=== PATIENT | male | born 1950 ===

== ENCOUNTER → 2017-10-07 | Emergency (ER) | payer OTHER ==
[~2017-10-07] VITALS: Ht 182.9 cm; Wt 85.3 kg
[~2017-10-07] MED LIST: LANTUS SOL100 UNIT/1
== END | disposition home or self-care (01) ==
LOC: ER 13:08
DX: S80.02XA Contusion of left knee, initial encounter (principal); W18.09XA Striking against other object with subsequent fall, initial encounter; Y93.89 Activity, other specified; Y92.018 Other place in single-family (private) house as the place of occurrence of the external cause; Y99.8 Other external cause status

== ENCOUNTER 2019-02-05 18:04 | Emergency (ER) | payer OTHER ==
[~2019-02-05] VITALS: Ht 182.9 cm; Wt 90.3 kg
[~2019-02-05 18:04] MED LIST changes: +DICLOFENAC SOD100 G1 TOP; +NABUMETONE750 MG PO
[2019-02-05] MEDS ORDERED: GABAPENTIN100 MG (18:17)
[2019-02-05] MEDS ORDERED: XANAX XR0.5 MG (18:17)
[2019-02-05] MEDS ORDERED: OMEGA-31000 MG (18:19)
[2019-02-05] MEDS ORDERED: ACTOPLUS MET 11 EAC1 (18:19)
[2019-02-05] MEDS ORDERED: LISINOPRIL10 MG (18:19)
== END 2019-02-05 21:37 | disposition home or self-care (01) ==
LOC: ER 18:04
DX: S63.111A Subluxation of metacarpophalangeal joint of right thumb, initial encounter (principal); S60.211A Contusion of right wrist, initial encounter; W18.09XA Striking against other object with subsequent fall, initial encounter; Y93.89 Activity, other specified; Y92.488 Other paved roadways as the place of occurrence of the external cause; Y99.8 Other external cause status

== ENCOUNTER 2019-08-15 08:32 | Emergency (ER) | payer OTHER ==
[~2019-08-15] VITALS: Ht 177.8 cm; Wt 86.2 kg
[~2019-08-15 08:32] MED LIST changes: +ACTOPLUS MET 11 EAC1; +GABAPENTIN100 MG; +LISINOPRIL10 MG; +OMEGA-31000 MG; +XANAX XR0.5 MG
== END 2019-08-15 13:12 | disposition home or self-care (01) ==
LOC: ER 08:32
DX: F43.11 Post-traumatic stress disorder, acute (principal); X34.XXXA Earthquake, initial encounter; Y93.89 Activity, other specified; Y92.89 Other specified places as the place of occurrence of the external cause; Y99.8 Other external cause status

== ENCOUNTER 2023-02-03 09:27 | Outpatient (CLI) | payer OTHER | END 2023-02-03 09:32 | disposition home or self-care (01) | LOC: TOM 09:27 | PROVIDERS: ATTEND Otolaryngology Otology & Neurotology | DX: J31.0 Chronic rhinitis (principal) ==

== ENCOUNTER 2023-11-10 11:57 | Outpatient (CLI) | payer OTHER | END 2023-11-10 12:03 | disposition home or self-care (01) | LOC: RAD 11:57 | PROVIDERS: ATTEND Orthopaedic Surgery | DX: M25.561 Pain in right knee (principal); M25.562 Pain in left knee; M25.551 Pain in right hip; M25.552 Pain in left hip; M54.50 Low back pain, unspecified ==

== ENCOUNTER 2024-06-07 07:22 | Outpatient (CLI) | payer OTHER | END 2024-06-07 07:23 | disposition home or self-care (01) | LOC: NUCLEAR 07:22 | DX: I73.9 Peripheral vascular disease, unspecified (principal); I87.2 Venous insufficiency (chronic) (peripheral) ==